=== PATIENT | male | born 1955 | race African-American/Black ===

== ENCOUNTER 2018-04-23 15:42 | Inpatient (IN) | payer MEDICAID, OTHER ==
[~2018-04-23] VITALS: Ht 188 cm; Wt 64.0 kg
[2018-04-23] MEDS ORDERED: IV NS 0.9% 1,000 ML BAG IV ONE ×2 (16:00→23:00)
--- NOTE | 2018-04-23 16:00 | NUR ---
[id number] from street: generalized body weakness X1 day. bs in field 420. Patient received awake and alert. Appears in no distress. Respiration even and unlabored. Skin is warm to touch and non diaphoretic. Patient is afebrile. vss
[2018-04-23 16:34] LABS: ABG BASE EXCESS -3.5 mmol/L; ABG OXYGEN SATURATION 95.1 % (92.0-98.5); ABG PCO2 34.7 mmHg (35.0-45.0); ABG PH 7.392 (7.350-7.450); ABG PO2 77.5 mmHg (75.0-100.0); AaDO2 30.7 mmHg; COHb 1.4 % (0.5-1.5); MetHb 0.2 % (0.0-1.5); O2Hb 93.6 % (94.0-97.0); SITE, ABG Right Radial; VENT MODE, BG ROOM AIR
[2018-04-23 16:43] LABS: ALANINE AMINOTRANSFERASE 37 U/L (12-78); ALBUMIN 4.1 g/dL (3.4-5.0); ALCOHOL, BLOOD < 3 mg/dL (0-0); ALKALINE PHOSPHATASE 225 U/L (46-116); ASPARTATE AMINOTRANSFERASE 19 U/L (15-37); BILIRUBIN,DIRECT 0.1 mg/dL (0.0-0.2); BILIRUBIN,TOTAL 0.7 mg/dL (0.2-1.0); CALCIUM, SERUM 10.6 mg/dL (8.5-10.1); CARBON DIOXIDE 21 mmol/L (21-32); CHLORIDE 93 mmol/L (98-107); CREATININE 1.5 mg/dL (0.6-1.3); POTASSIUM 4.8 mmol/L (3.5-5.1); SODIUM SERUM 132 mmol/L (136-145); TOTAL PROTEIN, SERUM 9.4 g/dL (6.4-8.2); UREA NITROGEN, BLOOD 37 mg/dL (7-18)
[2018-04-23 16:46] LABS: TROPONIN I < 0.017 ng/mL (0.00-0.056)
[2018-04-23 16:52] LABS: INR 0.97 (0.85-1.15)
[2018-04-23 17:01] LABS: GLUCOSE 399 mg/dL (74-106)
[2018-04-23 17:24] LABS: BASOPHILS % (AUTO) 0.2 % (0.0-2.0); EOSINOPHILS % (AUTO) 0.4 % (0.0-6.0); HEMATOCRIT 45 % (39-51); HEMOGLOBIN 14.4 g/dL (13.5-17.5); LYMPHOCYTES # (AUTO) 1.9 /CMM (0.8-4.8); LYMPHOCYTES % (AUTO) 35.3 % (20.0-44.0); MEAN CORPUSCULAR HEMOGLOBIN 24 PG (26.0-33.0); MEAN CORPUSCULAR HGB CONC 32 g/dl (31.0-36.0); MEAN CORPUSCULAR VOLUME 76 fL (80-96); MONOCYTES # (AUTO) 0.3 /CMM (0.1-1.30); MONOCYTES % (AUTO) 5.3 % (2.0-12.0); NEUTROPHILS # (AUTO) 3.2 /CMM (1.8-8.9); NEUTROPHILS % (AUTO) 58.8 % (43.0-81.0); PLATELET COUNT (AUTO) 300 /CMM (150-450); RDW COEFFICIENT OF VARIATION 14.8 (11.5-15.0); RED BLOOD CELL COUNT(AUTO) 5.93 MIL/uL (4.5-6.0); WHITE BLOOD COUNT (AUTO) 5.4 K/uL (4.3-11.0)
[2018-04-23] MEDS ORDERED: INSULIN REGULAR, HUMAN 100 UNIT/ML 10 ML VIAL SQ ONE (18:30)
--- NOTE | 2018-04-23 18:35 | NUR ---
DR FLOWER SPOKE WITH DR JONATHAN COULTER
--- NOTE | 2018-04-23 18:36 | NUR ---
CALLED NURSE SUP FOR MEDSURG BED
[2018-04-23] MEDS ORDERED: INSULIN REGULAR, HUMAN 100 UNIT/ML 10 ML VIAL ONE (18:42)
--- NOTE | 2018-04-23 18:45 | NUR ---
ADMINISTERED INSULIN SQ ORDERED BY MD. PT STABLE CONDITION. WELL TOLERATED.
--- NOTE | 2018-04-23 19:47 | NUR ---
PT STABLE CONDITION. PT UNCOOPERATIVE AND ANXIOUS. VSS. NAD
--- NOTE | 2018-04-23 20:11 | NUR ---
PT SITTING AT EDGE OF BED. "WHEN AM I GOING TO GET ADMITTED, I HAVE BEEN WAITING FOR HOURS." STABLE CONDITION. VSS. NAD
--- NOTE | 2018-04-23 21:45 | NUR ---
PT GIVEN A SANDWICH AND JUICE. OK TO EAT PER .
--- NOTE | 2018-04-23 22:30 | NUR ---
Milad ron in [facility] - 04/23/18 at 2233 by AZIZA PT FOUND SMOKING IN ER BATHROOM. SECURITY NOTIFIED TO REMOVE INDIVIDUAL
--- NOTE | 2018-04-23 22:30 | NUR ---
PT FOUND SMOKING IN ER BATHROOM. NOTIFIED
--- NOTE | 2018-04-23 23:01 | NUR ---
INITIATED 1L NS PER ORDRED BY
[2018-04-24] VITALS (25 sets, daily range): BP systolic 41–177; BP diastolic 25–92
[2018-04-24] MEDS ORDERED: IV NS 0.9% 1,000 ML BAG IV ONE (00:30)
--- NOTE | 2018-04-24 01:03 | NUR ---
PT RESTING COMFORTABLY. NAD. VSS.
--- NOTE | 2018-04-24 01:40 | NUR ---
DR. PETE FROM [facility] SPEAKING TO DR. SUMMERS.
[2018-04-24] MEDS ORDERED: INSULIN REGULAR, HUMAN 100 UNIT/ML 10 ML VIAL ONE (02:11)
[2018-04-24] MEDS ORDERED: INSULIN REGULAR, HUMAN 100 UNIT in IV NS 0.9% 99 ML IV PRN ×2 (02:30)
--- NOTE | 2018-04-24 02:48 | NUR ---
INTIATED INSULIN DRIP ORDERED BY MD SUMMERS. PT STABLE CONDITION. NAD. VSS.
--- NOTE | 2018-04-24 03:26 | NUR ---
REPORT GIVEN TO ALANNA RODRIGUEZ
--- NOTE | 2018-04-24 03:37 | NUR ---
PT TRANSP TO ICU. STABLE CONDITION. NAD. VSS.
[2018-04-24] MEDS: BLOOD SUGAR DIAGNOSTIC 1 EACH STRIP IN SCH ×9 (05:18→21:33)
--- NOTE | 2018-04-24 05:38 | NUR ---
CYBER SPECIAL AGENT - PT. WAS ADMITTED TO #256 & AT THE GET GO WAS VERBALLY ABUSIVE, HOSTILE AND UNCOOPERATIVE. PT. IS REFUSING ASSESSMENT. SECURITY & HS HAD TO BE CALLED, DUE TO PT. LOCKING HIMSELF IN THE BATHROOM BECAUSE WE "ARE STARVING HIM". PT.IS VERY INTIMIDATING AT THIS TIME-NO ORDERS REC'D, EXCEPT PT. CAN HAVE DIABETIC DIET. PT. REMAINS ON INSULIN GTT, USING DR. EVELYN LIMA'S INSULIN PROTOCOL. PT. HAS TREATED STAFF VERY BADLY. PT. IS ABUSIVE & HATED "ME" INSTANTLY WHEN I TOLD PT. THAT WE ARE AWAITING MEDICAL ORDERS INCLUDING DIET. PT. KEPT REPEATING"YOU DON'T CARE, YOU WANT TO STARVE ME". THIRD OFFICER Glenn GERBER WAS VERY PATIENT W/PT. AND WAS ABLE TO OBTAIN A MUTUAL RAPPORT W/PT. ONCE WE GOT THE DIET ORDER. PT. CALM-ED DOWN ONCE FED. INSULIN GTT. IS STILL INFUSING WELL & SITE IS INTACT. CONT. POC.
[2018-04-24] MEDS ORDERED: ACETAMINOPHEN 325 MG TABLET PO PRN (06:00)
[2018-04-24] MEDS ORDERED: ZOLPIDEM TARTRATE 5 MG TABLET PO PRN (06:00)
[2018-04-24] MEDS ORDERED: MAGNESIUM HYDROXIDE 30 ML UDC PO PRN (06:00)
[2018-04-24] MEDS ORDERED: MORPHINE SULFATE INJ 2 MG/ML DISP.SYRIN IV PRN (06:00)
[2018-04-24] MEDS ORDERED: ONDANSETRON HCL/PF 4 MG/2 ML VIAL IVP PRN (06:00)
[2018-04-24] MEDS ORDERED: IV 1/2NS 1000 ML 1,000 ML IV PRN (06:00)
[2018-04-24 06:59] LABS: ALBUMIN 3.3 g/dL (3.4-5.0); BILIRUBIN,TOTAL 0.3 mg/dL (0.2-1.0); CREATININE 1.4 mg/dL (0.6-1.3); MAGNESIUM 2.3 mg/dL (1.8-2.4); PHOSPHORUS 2.5 mg/dL (2.5-4.9); POTASSIUM 3.8 mmol/L (3.5-5.1); TOTAL PROTEIN, SERUM 7.6 g/dL (6.4-8.2)
[2018-04-24 07:11] LABS: THYROID STIMULATING HORMONE 2.283 uIU/mL (0.358-3.74)
--- NOTE | 2018-04-24 07:30 | NUR ---
Received report at bedside with patient yelling at launch check out nurses for a new room, more food etc. Patient is on Q 1 hour blood sugar finger stick tests, Insulin gtt visualized and continued with bedside report. Patient assisted to the restroom in 255, patient moved to 255, patient more pleased and less abusive with new room. Patient situated, given clean linens, assist with bath, all linens on bed changed. Let patient know that we would talk to executive secretary social welfare for him regarding clean cloths and talk to dietary regarding visiting him regarding any dietary issues.
--- NOTE | 2018-04-24 07:30 | NUR ---
Bedside report completed, also with preceptor Arpi. Patient vent dependent, total care patient. Initial assessment completed. Large liquid light brown stool, patient cleaned, repositioned. Plan of care will be for comfort and transfer when [facility] bed is available.
[2018-04-24 07:54] LABS: HEMATOCRIT 39 % (39-51); HEMOGLOBIN 12.4 g/dL (13.5-17.5); MEAN CORPUSCULAR HEMOGLOBIN 24 PG (26.0-33.0); MEAN CORPUSCULAR HGB CONC 32 g/dl (31.0-36.0); MEAN CORPUSCULAR VOLUME 75 fL (80-96); PLATELET COUNT (AUTO) 257 /CMM (150-450); RDW COEFFICIENT OF VARIATION 13.6 (11.5-15.0); RED BLOOD CELL COUNT(AUTO) 5.15 MIL/uL (4.5-6.0); WHITE BLOOD COUNT (AUTO) 5.7 K/uL (4.3-11.0)
[2018-04-24] MEDS: DOCUSATE SODIUM 100 MG CAPSULE PO SCH ×2 (08:27→17:00)
[2018-04-24] MEDS: PANTOPRAZOLE 40 MG TABLET.DR PO SCH (08:27)
[2018-04-24] MEDS: ASPIRIN 81 MG TAB.CHEW PO SCH (08:27)
[2018-04-24] MEDS: LISINOPRIL (5MG) 5 MG TABLET PO SCH (08:31)
[2018-04-24 10:11] LABS: LYMPHOCYTES % (MANUAL) 38 % (16-48); MONOCYTES % (MANUAL) 7 % (0-11.0); NEUTROPHILS % (MANUAL) 55 (42-76)
--- NOTE | 2018-04-24 12:47 | NUR ---
Per MD order, Dr Morris, Insulin gtt discontinued. Patient will now be on aggressive insulin sliding scale.
[2018-04-24] MEDS: LORAZEPAM INJ 2 MG/ML VIAL IV PRN ×2 (12:51→21:34)
--- NOTE | 2018-04-24 12:57 | NUR ---
Social service consult requested by JOSETTE Grace for homelessness. SW received a call from Pt's RN Wale informing SW that pt. would like to speak to her. According to ALANNA Echevarria, pt. is very rude and demanding. Pt. continues to demand continuously for food in spite of food given to him. Pt. is manipulative. SW met with pt. bedside. Pt. appears unkempt and not very pleasant. Pt. keeps complaining that he has not been given enough food in spite of having three meal trays within three hours. SW encouraged pt. to be patient and less demanding of what he is asking for. SW also encouraged pt. to be cordial with the nurse and not to be rude and accusatory. Pt. informed SW he has been homeless on and off for the past six years. Pt. states he [facility] to get [facility]. ALVINA to give pt. contact information for [facility]. Pt. also requested for clothing since his clothes are soiled. ALVINA gave pt. boxers and a t-shirt and informed him his RN will be getting him some pants. Pt. would also like homeless halfway resources prior to discharge. SW to give pt. the needful resources upon discharge. Pt. to sign Homeless patient waiver form prior to discharge. No other social service needs are requested at this time. SW is available, if needed. Addendum: 04/24/18 at 1327 by ENZO TINSLEY Pt. also informed SW that he receives General Relief and food stamps monthly. Pt. states he seldom uses alcohol and it's been a while since he has used any drugs. Pt's drug of choice when using was cocaine. Pt. states he suffers from Depression and Anxiety but is not taking any medication for it.
[2018-04-24] MEDS ORDERED: INSULIN GLARGINE, 100 UNIT/ML CARTRIDGE SQ ONE (13:00)
[2018-04-24] MEDS ORDERED: DEXTROSE 50%-WATER 50 ML DISP.SYRIN IV PRN (13:00)
[2018-04-24] MEDS ORDERED: hydrALAZINE HCL 25 MG TABLET PO PRN (13:00)
--- NOTE | 2018-04-24 13:00 | NUR ---
director learning services saw patient. Patient was requesting cloths. A set of cloths brought and put at bedside for patient. Patient was yelling at social worker assistant at one point. However, she was able to help with his concerns and a set of clean cloths were put at bedside. Awaiting Dietary to also come and see patient.
[2018-04-24] MEDS: IV NS 0.9% 1,000 ML IV PRN (14:38)
[2018-04-24] MEDS: INSULIN REGULAR, HUMAN 100 UNIT/ML 3 ML VIAL SQ PRN ×2 (16:51→21:45)
--- NOTE | 2018-04-24 18:52 | NUR ---
Patient more awake now, finishing eating tray. Reinforced teaching regarding consistent calorie diabetic diet. Computer Networker stated that she had a 4pm meeting and if she did not have time to meet with the patient before she left she would have let coremaker supervisor tomorrow know to talk to patient. Patient's friend at bedside, both watching TV, will endorse to PM shift RN.
--- NOTE | 2018-04-24 19:30 | NUR ---
PUBLIC SERVICES ASSISTANT NOTE RECEIVED PATIENT AWAKE A/OX4, ABLE TO MAKE NEEDS. PATIENT VERY DEMANDING, DEMANDING FOR FOOD. NO RESPIRATORY DISTRESS NOTED ON ROOM AIR. SKIN WARM AND DRY TO TOUCH. SR ON TELE MONITOR. SIDE RAILS UP AND LOCKED. BED KEPT AT LOWEST POSITION. CALL LIGHT KEPT WITHIN EASY REACH. PENDING TRANSFER TO [facility]. WILL CONTINUE TO MONITOR.
--- NOTE | 2018-04-24 19:45 | NUR ---
SENIOR ACTUARIAL ANALYST NOTE REPORT GIVEN TO [place]. PATIENT TRANSFERRED IN STABLE CONDITION WITH BED. Addendum: 04/24/18 at 2023 by YADIRA WOOD RN ADD TO NOTE: ALL BELONGINGS WITH PATIENT.
--- NOTE | 2018-04-24 19:49 | NUR ---
RN TEL INITIAL NOTE PT TRANSFERED FRO ICU, ON RM AIR WELL JADA, DENIES ANY PAIN AOX3, VERY DEMANDING AND AT TIMES VERBALLY ABUSIVE, TX PLAN EXPLAINED, CONTANTLY ASKING FOR SNACKS. WITH LFA # 20G, NS @ 75ML/HR IV INTACT, WELL SECURED, ALL SAFETY MEASURES IN PLACE, WILL CONTINUE TO MONITOR.
[2018-04-24] MEDS ORDERED: INSULIN GLARGINE, 100 UNIT/ML CARTRIDGE SQ SCH (22:00)
[2018-04-25] VITALS: BP 99/61
[2018-04-25] MEDS: BLOOD SUGAR DIAGNOSTIC 1 EACH STRIP IN SCH ×5 (01:03→16:09)
[2018-04-25] MEDS: INSULIN REGULAR, HUMAN 100 UNIT/ML 3 ML VIAL SQ PRN ×3 (01:11→12:09)
[2018-04-25 04:00] VITALS: BP 97/63
[2018-04-25] MEDS: IV NS 0.9% 1,000 ML IV PRN (05:47)
--- NOTE | 2018-04-25 06:12 | NUR ---
RN TEL CLOSING NOTE PT AWAKE IN BED, DIABETIC, NON COMPLIANT WITH DIET, WANTS TO SNACK AT ALL TIMES, DEMANDING FOR FOOD NON STOP, LEADING TO SPIKES OF BS, RISK AND BENEFIT EXPLAINED, WILL ENDORSE TO AM SHIFT TO F/U WITH PT NON COMPLIANCE BEHAVIOR.
[2018-04-25 06:26] LABS: CALCIUM, SERUM 8.7 mg/dL (8.5-10.1); CREATININE 0.8 mg/dL (0.6-1.3); MAGNESIUM 1.9 mg/dL (1.8-2.4); PHOSPHORUS 2.6 mg/dL (2.5-4.9); POTASSIUM 3.9 mmol/L (3.5-5.1)
[2018-04-25 06:28] LABS: HEMATOCRIT 35 % (39-51); HEMOGLOBIN 11.5 g/dL (13.5-17.5); MEAN CORPUSCULAR HEMOGLOBIN 25 PG (26.0-33.0); MEAN CORPUSCULAR HGB CONC 33 g/dl (31.0-36.0); MEAN CORPUSCULAR VOLUME 75 fL (80-96); PLATELET COUNT (AUTO) 208 /CMM (150-450); RDW COEFFICIENT OF VARIATION 13.6 (11.5-15.0); RED BLOOD CELL COUNT(AUTO) 4.64 MIL/uL (4.5-6.0); WHITE BLOOD COUNT (AUTO) 5.5 K/uL (4.3-11.0)
--- NOTE | 2018-04-25 07:30 | NUR ---
SURGICAL ASSISTANT CERTIFIED INITIAL NOTES: RECEIVED PT IN BED ASLEEP, EASY TO AROUSE. A&O X4. DENIES ANY PAIN OR DISCOMFORT AT THIS TIME. ON ROOM AIR, SATURATING 100%. PT ASKING FOR FOOD, REMINDED HIM THAT BREAKFAST WAS COMING SOON. PT PERSISTENT ABOUT EATING. IV TO LFA IN PLACE AND CONNECTED TO FLUIDS ORDERED. ON TELE MONITOR SR, HR 80'S. BED IN LOW LOCKED POSITION, CALL LIGHT WITHIN REACH. PLAN OF CARE DISCUSSED WITH PT. WILL CONTINUE TO MONITOR.
[2018-04-25 08:00] VITALS: BP 122/82
[2018-04-25] MEDS: ASPIRIN 81 MG TAB.CHEW PO SCH (08:20)
[2018-04-25] MEDS: DOCUSATE SODIUM 100 MG CAPSULE PO SCH ×2 (08:20→16:06)
[2018-04-25] MEDS: PANTOPRAZOLE 40 MG TABLET.DR PO SCH (08:20)
[2018-04-25] MEDS: LISINOPRIL (5MG) 5 MG TABLET PO SCH (08:21)
--- NOTE | 2018-04-25 08:30 | NUR ---
STEAM FINISHER NOTES: PT ATE BREAKFAST, STILL ASKING FOR MORE. REMINDED HIM OF DM AND CCHO DIET. PT STATES HE IS HUNGRY AND NEEDS TO EAT. BLOOD SUGAR CHECKED, 303. 12 UNITS OF INSULIN TO BE GIVEN ORDERED. PT REFUSES TO BE COMPLIANT WITH DIET. ASKING THE KITCHEN FOR MORE FOOD. PT ASKING TO SPEAK TO ALVINA, NURSING CHANDELIER MAKER, CHARGE NURSE, DIETITIAN. RELAYED TO JULIO CESAR, CHARGE NURSE AND SYDNEY NURSE CHANDELIER MAKER.
--- NOTE | 2018-04-25 09:00 | NUR ---
RN M/S NOTES: PT REFUSING TELE MONITOR. AWARE. CHANGED STATUS TO MED SURG. PT CONTINUES TO ASK FOR FOOD DESPITE BEING GIVEN MULTIPLE FOOD ITEMS. WILL CONTINUE TO MONITOR PT.
[2018-04-25 09:39] LABS: EOSINOPHILS % (MANUAL) 1 % (0-4); LYMPHOCYTES % (MANUAL) 48 % (16-48); MONOCYTES % (MANUAL) 5 % (0-11.0); NEUTROPHILS % (MANUAL) 46 (42-76)
[2018-04-25] MEDS: HYDROCODONE/APAP 5/325MG 1 EACH TABLET PO PRN ×2 (09:50→16:06)
--- NOTE | 2018-04-25 11:24 | NUR ---
Junction Maker consulted with pts NurseMasha for discharge planning purposes. SW inquired about discharge date. Per Nurse, pt does not have a discharge date as of yet. Per Nurse, pt. continues to demand continuously for food in spite of food given to him. Pt. keeps complaining that he has not been given enough food. Pts nurse informed that she believes pt may be manipulating his food intake (i.e. t is diabetic) in order to stay in the hospital (i.e. pt is homeless). SW discussed revisiting discussion regarding homeless nursing home referrals with pt. Upon meeting with pat at bedside, pt complained about the food he was being provided as well as clothing. Pt asked for pants, stating he had not received any pants as of yet, however was observed wearing pants. SW asked pt if he was interested in homeless referrals; which pt denied however accepted referrals. SW left pt copies of [facility] resources, homeless nursing home and food resources. SW asked pt to carry the referrals in his belongings just in case he needed them in the future. Pt agreed. SW is available, if needed.
[2018-04-25 12:00] VITALS: BP 105/68
--- NOTE | 2018-04-25 12:30 | NUR ---
RN M/S NOTES: PT CONTINUES TO NOT FOLLOW DIABETIC DIET, CONTINUOUSLY ASKING FOR MORE FOOD INCLUDING PUDDING, JELLO, CRACKERS, EGG SALAD, SANDWICHES EVEN AFTER CONSUMING 100% OF LUNCH. PT PROVIDED WITH SNACKS BUT PT CONTINUES TO STATE HE IS BEING IGNORED AND NO ONE IS HELPING HIM. PT HAS BEEN VISITED BY CHARGE NURSE, NURSE TECHNICAL SALES DIRECTOR, AND SW PER REQUEST. BS 348 AT 12PM PRIOR TO LUNCH. CONTINUED EDUCATION FOR CARB CONTROLLED DIET. WILL CONTINUE TO MONITOR.
[2018-04-25] MEDS ORDERED: METF10004 PO (13:59)
[2018-04-25 16:00] VITALS: BP 119/81
--- NOTE | 2018-04-25 16:00 | NUR ---
RN M/S NOTES: PER DR WHITLEY, PT TO BE DISCHARGED TODAY. SW OFFERED SHELTERS TO PT BUT PT REFUSED. PT STATED [facility] COM[facility] UP [facility] THE MORNING, BUT NO ONE HAS BEEN AWARE OF THIS OTHER THAN THE PT. CASE MANAGEMENT TO SPEAK TO PT.
--- NOTE | 2018-04-25 18:30 | NUR ---
PT REFUSING TO BE DISCHARGED, REFUSING TO SIGN FORMS. STATING HE DOESN'T WANT TO LEAVE. EXPLAINED TO PT THAT A DISCHARGE ORDER IS IN PLACE AND HE IS STABLE ENOUGH TO LEAVE. PT CONTINUES TO REFUSE.
--- NOTE | 2018-04-25 18:40 | NUR ---
PT REFUSING TO HAVE ID BANDS REMOVED, REFUSING TO LEAVE HOSPITAL. HEEL SEAT LASTER ALONSO AT BEDSIDE, SECURITY CALLED TO ASSIST. ID BANDS FINALLY REMOVED AFTER MULTIPLE ATTEMPTS. PT CONTINUES TO ARGUE WITH STAFF.
--- NOTE | 2018-04-25 18:50 | NUR ---
DISCHARGE: PT DISCHARGED WITH 2 SECURITY OFFICERS AND COMMERCIAL LEASE ADMINISTRATOR ALONSO VIA WHEELCHAIR. PT DENIES ANY PAIN OR DISCOMFORT AT THIS TIME. IV REMOVED WITH MINIMAL BLEEDING NOTED, PRESSURE DRESSING APPLIED. ID BANDS REMOVED. PT EDUCATION PROVIDED BUT PT NOT INTERESTED IN HANDOUTS, RX OR EDUCATION. ALL BELONGINGS TAKEN WITH PT, PT REFUSED TO SIGN.
== END 2018-04-25 18:59 | disposition home or self-care (01) | DRG 420 ==
LOC: ER 15:51 → ICU 04-24 02:20 → TELE1 04-24 19:43 → MEDSG1 04-25 08:10
PROVIDERS: ADMIT Internal Medicine; ATTEND Internal Medicine
DX: E11.10 Type 2 diabetes mellitus with ketoacidosis without coma (principal); N17.0 Acute kidney failure with tubular necrosis; E11.42 Type 2 diabetes mellitus with diabetic polyneuropathy; R62.7 Adult failure to thrive; I25.10 Atherosclerotic heart disease of native coronary artery without angina pectoris; R53.1 Weakness; M19.90 Unspecified osteoarthritis, unspecified site; G89.29 Other chronic pain; J44.9 Chronic obstructive pulmonary disease, unspecified; F17.210 Nicotine dependence, cigarettes, uncomplicated; I12.9 Hypertensive chronic kidney disease with stage 1 through stage 4 chronic kidney disease, or unspecified chronic kidney disease; E11.22 Type 2 diabetes mellitus with diabetic chronic kidney disease; N18.9 Chronic kidney disease, unspecified; E78.5 Hyperlipidemia, unspecified; F32.9 Major depressive disorder, single episode, unspecified; Z59.0 Homelessness; Z91.14 Patient's other noncompliance with medication regimen; D57.3 Sickle-cell trait
CPT/HCPCS: 36415; 36600; 71045-TC; 80048-TC; 80053-TC; 80061-TC; 80076-TC; 82010-TC; 82803-TC; 82962-TC; 83605-TC; 83735-TC; 84100-TC; 84153-TC; 84443-TC; 84484-TC; 85025-TC; 85730-TC; 87040-TC; 87081-TC; A4606; G0480; J1815; J2060; J3490; J7030; Z7610

== ENCOUNTER 2019-04-24 16:27 | Emergency (ER) | payer OTHER ==
[~2019-04-24] VITALS: Ht 177.8 cm; Wt 79.4 kg
[~2019-04-24 16:27] MED LIST: METF-442 PO
--- NOTE | 2019-04-24 16:27 | NUR ---
PT MAGGI FROM THE STREETS FOR FEELING DIZZY AND HYPERGLYCEMIA; PT AAOX4, -SOB, NAD NOTED, VSS, PENDING MD DIA
[2019-04-24 17:15] LABS: BASOPHILS # (AUTO) 0.1 /CMM (0.0-0.2); BASOPHILS % (AUTO) 0.8 % (0.0-2.0); EOSINOPHILS % (AUTO) 0.3 % (0.0-6.0); HEMATOCRIT 34 % (39-51); HEMOGLOBIN 10.8 g/dL (13.5-17.5); LYMPHOCYTES # (AUTO) 1.2 /CMM (0.8-4.8); LYMPHOCYTES % (AUTO) 10.4 % (20.0-44.0); MEAN CORPUSCULAR HGB CONC 32 g/dl (31.0-36.0); MEAN CORPUSCULAR VOLUME 73 fL (80-96); MONOCYTES # (AUTO) 0.9 /CMM (0.1-1.30); MONOCYTES % (AUTO) 7.9 % (2.0-12.0); NEUTROPHILS # (AUTO) 9.2 /CMM (1.8-8.9); NEUTROPHILS % (AUTO) 80.6 % (43.0-81.0); PLATELET COUNT (AUTO) 246 /CMM (150-450); RED BLOOD CELL COUNT(AUTO) 4.67 MIL/uL (4.5-6.0); WHITE BLOOD COUNT (AUTO) 11.5 K/uL (4.3-11.0)
[2019-04-24 17:17] LABS: APPEARANCE,URINE Clear (CLEAR); BILIRUBIN,URINE SMALL (NEGATIVE); BLOOD, URINE Negative Ery/uL (NEGATIVE); COLOR,URINE Yellow (YELLOW); KETONES,URINE 40 (NEGATIVE); LEUKOCYTE ESTERASE ,URINE Negative (NEGATIVE); NITRITE, URINE Negative (NEGATIVE); PH,URINE 5.5 (5.0-8.0); PROTEIN,URINE 100 mg/dl (NEGATIVE); UGLUCOSE 500 MG/DL mg/dL (NEGATIVE); UROBILINOGEN,URINE 0.2 EU/dL (0.2)
[2019-04-24 17:26] LABS: CALCIUM, SERUM 9.3 mg/dL (8.5-10.1); CARBON DIOXIDE 23 mmol/L (21-32); CHLORIDE 99 mmol/L (98-107); CREATININE 0.8 mg/dL (0.6-1.3); GLUCOSE 204 mg/dL (74-106); POTASSIUM 3.7 mmol/L (3.5-5.1); SODIUM SERUM 136 mmol/L (136-145); UREA NITROGEN, BLOOD 22 mg/dL (7-18)
[2019-04-24] MEDS ORDERED: IV NS 0.9% 500 ML BAG IV ONE (17:30)
[2019-04-24 17:36] LABS: ALANINE AMINOTRANSFERASE 24 U/L (12-78); ALBUMIN 2.9 g/dL (3.4-5.0); ALKALINE PHOSPHATASE 136 U/L (46-116); ASPARTATE AMINOTRANSFERASE 15 U/L (15-37); BILIRUBIN,DIRECT 0.1 mg/dL (0.0-0.2); BILIRUBIN,TOTAL 0.6 mg/dL (0.2-1.0); LIPASE 26 U/L (73-393); TOTAL PROTEIN, SERUM 7.8 g/dL (6.4-8.2)
[2019-04-24 17:57] LABS: BACTERIA,URINE Few /HPF (None Seen); RBC,URINE 0-2 /HPF (0-2); SQUAMOUS EPITHELIAL CELL,UR Few /HPF (None Seen); WBC,URINE 0-2 /HPF (0-3)
[2019-04-24 19:00] VITALS: BP 139/80
--- NOTE | 2019-04-24 19:21 | NUR ---
Patient given written and verbal discharge instructions. Patient verbalizes understanding of instructions. Patient is ambulatory with steady gait. Refuses offer of correction placement. Patient given list of available shelters in surrounding area.
== END 2019-04-24 19:25 | disposition home or self-care (01) ==
LOC: ER 16:31
DX: R11.2 Nausea with vomiting, unspecified (principal); E11.65 Type 2 diabetes mellitus with hyperglycemia; J45.909 Unspecified asthma, uncomplicated; I25.10 Atherosclerotic heart disease of native coronary artery without angina pectoris; E07.9 Disorder of thyroid, unspecified; E11.40 Type 2 diabetes mellitus with diabetic neuropathy, unspecified; I10 Essential (primary) hypertension; F17.200 Nicotine dependence, unspecified, uncomplicated; Z79.84 Long term (current) use of oral hypoglycemic drugs
CPT/HCPCS: 36415; 71045; 76705; 80048; 80076; 81001; 83690; 84484; 85025; 85730; 93005; 96360; 99284; 99406; J7040; 81000-TC